=== PATIENT | female | born 2000 | race Caucasian/White ===

== ENCOUNTER 2023-03-28 21:28 | Emergency (ER) | payer SELFPAY ==
[~2023-03-28] VITALS: Ht 157.5 cm; Wt 59.1 kg
[2023-03-28 21:38] VITALS: TEMP 98
[2023-03-28 23:14] VITALS: BP 131/87; PULSE 100
== END 2023-03-28 23:14 | disposition home or self-care (01) ==
LOC: COL.ER 21:28
DX: S82.001A Unspecified fracture of right patella, initial encounter for closed fracture (principal); S80.212A Abrasion, left knee, initial encounter; W01.0XXA Fall on same level from slipping, tripping and stumbling without subsequent striking against object, initial encounter; Y92.128 Other place in nursing home as the place of occurrence of the external cause; Y99.0 Civilian activity done for income or pay
CPT/HCPCS: L1846